=== PATIENT | male | born 1940 | race Caucasian/White ===

== ENCOUNTER 2017-06-10 12:41 | Emergency (ER) | payer MEDICARE, MEDICAID ==
[~2017-06-10] VITALS: Ht 180.3 cm; Wt 77.3 kg
[2017-06-10] MEDS ORDERED: AMIO200T44 PO (13:28)
[2017-06-10] MEDS ORDERED: OLAN5TAB2 PO (13:28)
[2017-06-10] MEDS ORDERED: COLL30OI TP (13:28)
[2017-06-10] MEDS ORDERED: ACET-2247 PO (13:28)
[2017-06-10] MEDS ORDERED: OLAN2.5T3 PO (13:28)
[2017-06-10] MEDS ORDERED: MOM30 PO (13:28)
[2017-06-10] MEDS ORDERED: ONDA4 PO (13:28)
[2017-06-10] MEDS ORDERED: [UNRECOGNIZED DRUG - CODE] PO (13:28)
[2017-06-10] MEDS ORDERED: FAMO20 PO (13:28)
[2017-06-10] MEDS ORDERED: DIGO125T PO (13:28)
[2017-06-10] MEDS ORDERED: IPRNEB NEB (13:28)
[2017-06-10] MEDS ORDERED: HYDR-3290 PO (13:28)
[2017-06-10] MEDS ORDERED: BISA5TAB12 PO (13:28)
[2017-06-10] MEDS ORDERED: ENOX40DI9 SQ (13:28)
[2017-06-10] MEDS ORDERED: CEFEPIME HCL 1 GM/VIAL IM ONE (14:00)
[2017-06-10] MEDS ORDERED: SODIUM CHLORIDE 0.9% 1,000 ML IV ONE ×2 (14:00)
[2017-06-10] MEDS ORDERED: 0.9% SODIUM CHLORIDE 10 ML SYRINGE IVP PRN (14:00)
[2017-06-10] MEDS ORDERED: VANCOMYCIN HCL 1 GM/D5% WATER 200 ML IV ONE (14:00)
[2017-06-10] MEDS ORDERED: MetroNIDAZOLE 500 MG/NACL 100 ML IV ONE (14:00)
[2017-06-10 14:02] LABS: BASOPHILS % (AUTO) 0.4 % (0.0-2.0); EOSINOPHILS % (AUTO) 0 % (1.0-6.0); HEMATOCRIT 30.8 % (41-53); HEMOGLOBIN 10.3 g/dL (13.5-17.5); LYMPHOCYTES # (AUTO) 2.2 K/uL (1.0-4.8); LYMPHOCYTES % (AUTO) 9.9 % (22.0-44.0); MEAN CORPUSCULAR HEMOGLOBIN 29.6 pg (26.0-34.0); MEAN CORPUSCULAR HGB CONC 33.4 G/dL (31.0-37.0); MEAN CORPUSCULAR VOLUME 88 fL (80-100); MONOCYTES # (AUTO) 1.3 K/uL (0.1-1.0); MONOCYTES % (AUTO) 5.9 % (2.0-9.0); NEUTROPHILS # (AUTO) 18.5 K/uL (1.8-7.7); NEUTROPHILS % (AUTO) 83.8 % (40.0-70.0); PLATELET COUNT (AUTO) 445 K/uL (150-450); RED BLOOD CELL COUNT(AUTO) 3.48 MIL/uL (4.50-5.90); RED CELL DISTRIBUTION WIDTH 14.8 % (11.5-14.5); WHITE BLOOD COUNT (AUTO) 22.1 K/uL (4.5-11.0)
[2017-06-10 14:15] LABS: ANION GAP 8 mmol/L (8-16); CALCIUM, TOTAL 8.8 mg/dL (8.8-10.5); CARBON DIOXIDE 29 mmol/L (22-29); CHLORIDE 95 mmol/L (98-107); CREATININE 0.91 mg/dL (0.60-1.30); GLOMERULAR FILTR. RATE CALC > 60 mL/min (>60); POTASSIUM 4.7 mmol/L (3.5-5.1); SODIUM SERUM 132 mmol/L (136-145); UREA NITROGEN, BLOOD 25 mg/dL (7-18)
[2017-06-10] MEDS ORDERED: CEFEPIME HCL 1 GM in DEXTROSE 5%-WATER 50 ML IV ONE (14:15)
[2017-06-10 14:27] LABS: INR 1.1 (0.9-1.1); PROTHROMBIN TIME 11.2 SEC (9.4-11.6)
[2017-06-10] MEDS ORDERED: ACETAMINOPHEN 325 MG TABLET PO ONE (14:30)
[2017-06-10 14:32] LABS: B-TYPE NATRIURETIC PEPTIDE 252 pg/mL (0-100)
[2017-06-10] MEDS ORDERED: ACETAMINOPHEN 650 MG/ISO-OSM 65 ML IV ONE (14:45)
[2017-06-10 14:53] LABS: DIGOXIN 0.91 ng/mL (0.90-2.00)
[2017-06-10 15:12] LABS: APPEARANCE,URINE CLEAR (CLEAR); GLUCOSE, URINE (UA) NEGATIVE (NEGATIVE); KETONES,URINE TRACE mg/dL (NEGATIVE); LEUKOCYTE ESTERASE ,URINE TRACE (NEGATIVE); OCCULT BLOOD,URINE NEGATIVE (NEGATIVE); PROTEIN,URINE POS 1+ (NEGATIVE)
[2017-06-10 15:20] LABS: ADD UA MICROSCOPIC YES
[2017-06-10 15:21] LABS: RBC,URINE 0-2 /HPF (0-2); SQUAMOUS EPITHELIAL CELL,UR Few /LPF (None Seen)
[2017-06-10 15:50] LABS: BILIRUBIN,TOTAL 0.4 mg/dL (0.1-1.0)
[2017-06-10 15:51] LABS: ALANINE AMINOTRANSFERASE 49 U/L (12-78); ALBUMIN 2.3 g/dL (3.4-5.0)
[2017-06-10 16:08] LABS: ASPARTATE AMINOTRANSFERASE 41 U/L (15-37)
[2017-06-10 16:16] LABS: LACTIC ACID 1.2 mmol/L (0.4-2.0)
[2017-06-10 16:49] VITALS: BP 111/61
== END 2017-06-10 17:00 | disposition short-term general hospital (02) ==
LOC: EMS 12:43
DX: A41.9 Sepsis, unspecified organism (principal); L03.311 Cellulitis of abdominal wall; I48.91 Unspecified atrial fibrillation; E78.00 Pure hypercholesterolemia, unspecified; J44.9 Chronic obstructive pulmonary disease, unspecified
CPT/HCPCS: 36415; 51702; 71010; 80053; 80162; 81001; 83605; 83880; 84484; 85025; 85610; 87040; 87077; 87186; 93005; 96365; 96366; 96368; 99291; J0131; J0692; J3370; J3490; J7030; J7060